=== PATIENT | female | born 1995 | race Caucasian/White ===

== ENCOUNTER 2019-12-25 11:25 | Emergency (ER) | payer OTHER, BC ==
--- NOTE | 2019-12-25 11:54 | ER Document Report ---
ED GI/ - General Chief Complaint: Vaginal Bleeding Stated Complaint: VAGINAL BLEEDING Time Seen by Provider: 12/25/19 11:32 Notes: CHIEF COMPLAINT: Pelvic pain, vaginal bleeding, HPI: 24-year-old female presenting to the emergency department complaining of pelvic cramping over the last 3 to 4 days with onset of some dark brown vaginal blood approximately a tablespoon this morning. Patient states that she found that she was last week. This is her first . No back pain no fever no vomiting. Has not yet seen her HAND POTTER in [place]. Is staying in [place] during the COVID-19 pandemic ROS: See HPI - all other systems were reviewed and are otherwise negative Constitutional: no fever or recent illness Eyes: no drainage, no blurred vision ENT: no runny nose, no sore throat Cardiovascular: no chest pain Resp: no SOB, no cough GI: no vomiting, no diarrhea, positive pelvic cramping : no dysuria, no vaginal discharge, positive vaginal bleeding Integumentary: no rash Allergy: no hives Musculoskeletal: no extremity pain or swelling Neurological: no numbness/tingling, no weakness MEDICATIONS: I agree with the patient medications as charted by the RN. ALLERGIES: I agree with the allergies as charted by the RN. PAST MEDICAL HISTORY/PAST SURGICAL HISTORY: Reviewed and agree as charted by RN. SOCIAL HISTORY: Reviewed and agree as charted by RN. FAMILY HISTORY: No significant familial comorbid conditions directly related to patient complaint EXAM: Reviewed vital signs as charted by RN. CONSTITUTIONAL: Alert and oriented and responds appropriately to questions. Well-appearing; well-nourished HEAD: Normocephalic; atraumatic EYES: PERRL; Conjunctivae clear, sclerae non-icteric ENT: normal nose; no rhinorrhea; moist mucous membranes; pharynx without lesions noted NECK: Supple without meningismus; non-tender; no cervical lymphadenopathy, no masses CARD: RRR; no murmurs, no clicks, no rubs, no gallops; symmetric distal pulses RESP: Normal chest excursion without splinting or tachypnea; breath sounds clear and equal bilaterally; no wheezes, no rhonchi, no rales, ABD/GI: Normal bowel sounds; non-distended; soft, non-tender, no rebound, no guarding; no palpable organomegaly or masses : Female 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 External genitalia normal. No skin lesions noted. Pelvic Exam: Small amount of dark red blood in the vaginal vault without clots. No purulent discharge. Cervix appears normal. No CMT. cervical loss is closed. No lesions or masses. Uterus enlarged consistent with 4 weeks to 5-week gestation and non tender. Right/Left adnexa normal size and non tender. BACK: The back appears normal and is non-tender to palpation, there is no CVA tenderness EXT: Normal ROM in all joints; non-tender to palpation; no cyanosis, no effusions, no edema SKIN: Normal color for age and race; warm; dry; good turgor; no acute lesions noted NEURO: Moves all extremities equally; Motor and sensory function intact PSYCH: The patient's mood and manner are anxious. Grooming and personal hygiene are appropriate. MDM: 24-year-old female with pelvic cramping in the setting of with small amount of vaginal bleeding. Patient is not hemorrhaging. Will obtain scr eening labs and plan for ultrasound to evaluate - Related Data Allergies/Adverse Reactions: Penicillins Allergy (Verified 12/25/19 12:07) Sulfa (Sulfonamide Antibiotics) Allergy (Verified 12/25/19 12:07) Home Medications: vitamin Past Medical History - Social History Smoking Status: Unknown if Ever Smoked Family History: Reviewed & Not Pertinent Patient has homicidal ideation: No Physical Exam - Vital signs Vitals: Temp 99.0 F 12/25/19 11:25 Course - Re-evaluation Re-evalutation: 12/25/19 14:19 I discussed the evaluation results at length with the patient. Patient's beta hCG is too low to effectively see anything on ultrasound. I did discuss this with her. Aware that we cannot rule out ectopic. Aware that we cannot rule out miscarriage. I will place an outpatient lab order for repeat beta-hCG. I will refer her to local HAND POTTER she has not going home to [place] until January 14 so she will have reasonably close follow-up if needed here in town. We did discuss bleeding precautions - Vital Signs Vital signs: Temp Pulse Resp BP Pulse Ox 99.0 F 90 16 119/65 100 12/25/19 11:28 12/25/19 11:28 12/25/19 11:28 12/25/19 11:28 12/25/19 11:28 - Laboratory Result Diagrams: 12/25/19 11:49 12/25/19 11:49 Laboratory results interpreted by me: 12/25/19 12/25/19 11:49 11:49 Sodium 135.6 L BUN 6 L Creatinine 0.51 L Beta HCG, Quant 416.26 H Urine Ascorbic Acid 20 H Urine HCG, Qual POSITIVE H Discharge - Discharge Clinical Impression: Threatened miscarriage in early Condition: Stable Disposition: HOME, SELF-CARE Additional Instructions: 1. follow up with OB for repeat Beta-HCG blood test in 3-5 days 2. follow up with OB for further evaluation and treatment, call for appt. 3. return to the ED for any worsening/onset of abdominal pain, vomiting or vaginal bleeding where you are saturating > 1 pad per hour 4. An intrauterine was not definitively seen on the ultrasound. This does not completely rule out miscarriage or ectopic. 5. An order has been placed for you for outpatient repeat beta-hCG as discussed Forms: Follow-Up Laboratory Testing Referrals: SAE ARCEO MD [ACTIVE STAFF] - Follow up as needed
[2019-12-25 12:10] LABS: BACTERIA (WET MOUNT) 4+ BACTERIA SEEN; EPITHELIALS (WET MOUNT) 3+ EPITHELIALS SEEN; RBCS (WET MOUNT) 4+ RBCS SEEN; T.VAGINALIS (WET MOUNT) NO TRICHOMONAS SEEN; WBCS (WET MOUNT) 1+ WBCS SEEN; YEAST (WET MOUNT) NO YEAST SEEN
[2019-12-25 12:20] LABS: ABSOLUTE EOSINOPHILS # (AUTO) 0.3 10^3/uL (0.0-0.6); ABSOLUTE LYMPHOCYTES (AUTO) 1.6 10^3/uL (0.5-4.7); ABSOLUTE MONOCYTES (AUTO) 0.3 10^3/uL (0.1-1.4); BASOPHILS % (AUTO) 0.8 % (0-2); EOSINOPHILS % (AUTO) 5.6 % (0-6); HEMATOCRIT 39.6 % (36.0-47.0); HEMOGLOBIN 13.8 g/dL (12.0-15.5); LYMPHOCYTES % (AUTO) 30.6 % (13-45); MEAN CORPUSCULAR HEMOGLOBIN 32.9 pg (27.0-33.4); MEAN CORPUSCULAR HGB CONC 34.7 g/dL (32.0-36.0); MEAN CORPUSCULAR VOLUME 95 fl (80-97); MONOCYTES % (AUTO) 6.5 % (3-13); PLATELET COUNT 172 10^3/uL (150-450); RED BLOOD COUNT 4.18 10^6/uL (3.72-5.28); RED CELL DISTRIBUTION WIDTH 12.5 % (11.5-14.0); SEGMENTED NEUTROPHILS % (AUTO) 56.5 % (42-78); TOTAL CELLS COUNTED % (AUTO) 100 %; WHITE BLOOD COUNT 5.2 10^3/uL (4.0-10.5)
[2019-12-25 12:29] LABS: APPEARANCE,URINE CLEAR; BILIRUBIN,URINE NEGATIVE (NEGATIVE); COLOR,URINE YELLOW; GLUCOSE, URINE NEGATIVE (NEGATIVE); KETONES,URINE NEGATIVE (NEGATIVE); LEUKOCYTE ESTERASE,URINE NEGATIVE (NEGATIVE); NITRITE,URINE NEGATIVE (NEGATIVE); PROTEIN,URINE NEGATIVE (NEGATIVE); URINE SPECIFIC GRAVITY 1.009; UROBILINOGEN,URINE NEGATIVE mg/dL (<2.0)
[2019-12-25 12:32] LABS: ALBUMIN 4.1 g/dL (3.5-5.0); ALKALINE PHOSPHATASE 69 U/L (38-126); ANION GAP 9 (5-19); ASPARTATE AMINO TRANSFERASE 16 U/L (14-36); BILIRUBIN,TOTAL 0.8 mg/dL (0.2-1.3); BLOOD UREA NITROGEN 6 mg/dL (7-20); CALCIUM 9.2 mg/dL (8.4-10.2); CARBON DIOXIDE 23 mmol/L (22-30); CHLORIDE 104 mmol/L (98-107); GLUCOSE 94 mg/dL (75-110); POTASSIUM 3.9 mmol/L (3.6-5.0)
--- NOTE | 2019-12-25 13:32 | RADIOLOGY REPORT (SQ) ---
EXAM DESCRIPTION: U/S OB TRANSVAG W/DOPPLER IMAGES COMPLETED DATE/TIME: 12/25/2019 1:19 pm REASON FOR STUDY: vag bleed preg COMPARISON: None. TECHNIQUE: Transvaginal static and realtime grayscale images acquired of the pelvis. Additional eliazar cted spectral and color Doppler images recorded. All images stored on PACs. CLINICAL AGE: 4 weeks 1 day. BHC.26 LIMITATIONS: None. FINDINGS: UTERUS: No visualized intrauterine . Single 1.6 x 1.8 x 1.6 uterine fibroid is n oted. RIGHT ADNEXA: Normal flow. There is a 2.4 x 1.0 x 1.8 cm cyst. No adnexal free fluid. No adnexal masses. LEFT ADNEXA: The left ovary is obscured by overlying bowel gas. No adnexal free fluid. No adnexal masses. FREE FLUID: None. OTHER: The endometrial stripe measures 15 mm. IMPRESSION: NO VISUALIZED INTRA- OR EXTRAUTERINE . bHCG LEVEL TOO LOW TO EXPECT VISUALIZATION OF . ECTOPIC CANNOT BE EXCLUDED. FOLLOW-UP ULTRASOUND AND SERIAL BHCG LEVELS STRONGLY RECOMMENDED TO ACCURATELY ASSESS STATU S. TECHNICAL DOCUMENTATION: JOB ID: [id number] [employer]- All Rights Reserved Reading location - IP/workstation name: [email or web address]
[2019-12-25 13:39] LABS: CHLAM PCR NOT DETECTED (NOT DETECT)
[2019-12-25 14:42] VITALS: BP 138/68
== END 2019-12-25 14:30 | disposition home or self-care (01) ==
LOC: ER 11:25
DX: O20.0 Threatened abortion (principal); O26.899 Other specified pregnancy related conditions, unspecified trimester; R10.2 Pelvic and perineal pain; Z3A.00 Weeks of gestation of pregnancy not specified; Z79.899 Other long term (current) drug therapy; Z88.0 Allergy status to penicillin; Z88.2 Allergy status to sulfonamides
CPT/HCPCS: 36415; 76817; 80053; 81001; 81025; 84702; 85025; 86900; 86901; 87210; 87491; 87591; 93976; 99284

== ENCOUNTER → 2019-12-28 | Outpatient (CLI) | payer OTHER, BC | LOC: LAB 08:29 | PROVIDERS: ATTEND Nurse Practitioner Acute Care | DX: O20.0 Threatened abortion (principal) | CPT/HCPCS: 36415; 84702 ==